=== PATIENT | female | born 1940 | race Caucasian/White ===

== ENCOUNTER 2016-12-28 15:06 | Emergency (ER) | payer MEDICARE ==
--- NOTE | ~2016-12-28 | ER ---
PATIENT'S NAME: [facility] AGE: 76 Y [address] ROOM: [place] [address] LOCATION: [facility] ADMIT DATE: 12/28/2016 ER/Outpatient Report DISCHARGE DATE: 12/28/2016 FAMILY PHYSICIAN: PHYSICIAN, NO ATTENDING PHYSICIAN: Jose Simms Time of Arrival: 1506 hours. Time of Evaluation: 1513 hours. CHIEF COMPLAINT: Weakness. HISTORY OF PRESENT ILLNESS: The patient is a 76-year-old female, who presents to the emergency department today with a chief complaint of weakness. She reports she has just been sleeping more than normal. She reports that she does have a history of a urinary tract infection. She had one a couple of months ago. She does have some shortness of breath with walking as well. She does report a fever of 99.2, and some chills. No nausea or vomiting. No diarrhea or constipation. No chest pain. Mild cough. Pain is currently mild in severity in her joints. PAST MEDICAL HISTORY: Hypertension, dyslipidemia. PAST SURGICAL HISTORY: Cholecystectomy. SOCIAL HISTORY: The patient denies any tobacco, alcohol, or illicit drug use. ALLERGIES: TO NIACIN. FAMILY HISTORY: Heart disease and diabetes in sister. PRIMARY CARE DOCTOR: None. REVIEW OF SYSTEMS: All systems are reviewed by myself and are negative with the exception of those discussed in the HPI and past medical history. PHYSICAL EXAMINATION: VITAL SIGNS: Weight 79.5 kg, blood pressure 155/82, pulse 101, respiratory PATIENT'S NAME: [facility] AGE: 76 Y [address] ROOM: [place] [address] LOCATION: [facility] ADMIT DATE: 12/28/2016 ER/Outpatient Report DISCHARGE DATE: 12/28/2016 FAMILY PHYSICIAN: PHYSICIAN, NO ATTENDING PHYSICIAN: Jose Simms rate 22, temperature 98.3, oxygen saturation 93% on room air. GENERAL: The patient is a 76-year-old female, who appears stated age, in no acute distress at this time. HEENT: Normocephalic, atraumatic. Pupils are equal, round, and reactive to light. Mucous membranes are moist. NECK: Supple. There is no nuchal rigidity. CARDIOVASCULAR: Tachycardic. No murmurs, rubs, or gallops. LUNGS: Clear to auscultation bilaterally. No wheezes, rales, or rhonchi. ABDOMEN: Soft, nontender, and nondistended. No rebound, rigidity, or guarding. MUSCULOSKELETAL: The patient moves all 4 extremities. Ambulates in the room. SKIN: Warm and dry. LABORATORY DATA AND X-RAYS: Labs and x-rays are obtained. Urinalysis shows 500 leukocyte esterase, positive nitrites, 100 protein, many bacteria, 20-50 wbc's, 50 ketones, 250 blood. TSH is normal. Free T4 is 2.1. Two-view chest x-ray is obtained, does show a small right pleural effusion. EKG is obtained, is interpreted by myself, shows sinus rhythm with a rate of 90, left axis deviation, normal interval. No ST elevation, ST depression, T-wave inversions. CBC: White blood cell count 14.5, platelets 610. Lactate is normal. Coags are normal. Troponin is normal. CK-MB, troponin, CK are normal. Total bilirubin is normal. CMP is unremarkable except for CO2 of 21, alkaline phosphatase 120, AST is 94, ALT is 85. Procalcitonin is 0.36. IMPRESSION: 1. Acute urinary tract infection, suspect bladder. 2. Elevated liver enzymes. 3. Small right pleural effusion. 4. Initial visit. EMERGENCY DEPARTMENT COURSE: The patient was brought back to the examination room. Seen and evaluated by myself. IV is established. Laboratory analysis and imaging are obtained as described above. The patient was given a liter of normal saline as well as 1 g of Rocephin IV. The patient does have an excellent overall clinical appearance at this time. Her vital signs are stable. I have discussed that I would like her to follow up with her primary care doctor in 2 or 3 days for re- evaluation. I have discussed return to care instructions including worsening symptoms or any other concerns to return to the emergency department as soon as possible. The patient is agreeable without further questions. DISPOSITION: The patient is discharged home in good condition. PATIENT'S NAME: LEX IZAGUIRRE [facility] AGE: 76 Y [address] ROOM: [place] [address] LOCATION: [facility] ADMIT DATE: 12/28/2016 ER/Outpatient Report DISCHARGE DATE: 12/28/2016 FAMILY PHYSICIAN: PHYSICIAN, NO ATTENDING PHYSICIAN: Jose Simms DO GAIL [employer]ODALL/modl /[id number] d: 12/28/162054 t: 12/30/1608, OUTPATIENT REPORT
[2016-12-28 15:42] LABS: BASOPHIL % 0.1 %; EOSINOPHIL % 0.2 %; HEMATOCRIT 33.9 % (33.0-46.0); HEMOGLOBIN 11.3 g/dL (10.0-15.0); IMMATURE GRANULOCYTE # 0.1 K/uL (0.0-0.3); IMMATURE GRANULOCYTE % 0.4 %; LYMPHOCYTE # 1.3 K/uL (0.8-4.0); LYMPHOCYTE % 9.1 %; MCH 29.4 pg (27.0-34.0); MCHC 33.3 gm/dL (32.0-36.5); MCV 88.1 fl (83.0-98.0); MONOCYTE # 1.3 K/uL (0.0-1.0); MONOCYTE % 8.9 %; MPV 9.3 fl (9.4-12.4); NEUTROPHIL # (ANC) 11.8 K/uL (1.8-7.8); NEUTROPHIL % 81.3 %; NRBC % 0 /100WBC (0-0.00); PLATELET COUNT 610 K/uL (150-450); RBC 3.85 M/uL (3.50-5.50); RDW-CV 14.9 % (11.9-14.6); WBC 14.5 K/uL (4.0-11.0)
[2016-12-28 15:51] LABS: INR - (THERAPEUTIC) 0.99 (0.92-1.07); PROTIME 10.4 SECONDS (9.8-11.4); PTT 31 SECONDS (25-32)
[2016-12-28 16:06] LABS: ALBUMIN 2.3 gm/dL (3.5-5.0); ALK PHOS 170 IU/L (33-138); ALT 85 IU/L (12-78); ANION GAP 15.8 (10.0-19.0); AST 94 IU/L (10-40); BLOOD UREA NITROGEN 16 mg/dL (6-24); CALCIUM 8.6 mg/dL (8.5-10.5); CHLORIDE 104 mMol/L (96-110); CO2 21 mMol/L (22-32); CPK 20 IU/L (21-215); CREATININE 1.1 mg/dL (0.5-1.1); ESTIMATED GFR (MDRD EQUATION) 48; POTASSIUM 3.8 mMol/L (3.7-5.1); SODIUM 137 mMol/L (135-145); TOTAL PROTEIN 7.6 g/dL (6.0-8.4)
[2016-12-28 16:25] LABS: BILIRUBIN URINE NEGATIVE (NEGATIVE); BLOOD URINE 250 /UL (NEGATIVE); COLOR URINE YELLOW (YELLOW); GLUCOSE URINE NEGATIVE (NEGATIVE); KETONE URINE 50 mg/dL (NEGATIVE); LEUKOCYTES URINE 500 /UL (NEGATIVE); NITRITE URINE POSITIVE (NEGATIVE); PROTEIN URINE 100 mg/dL (NEGATIVE); TURBIDITY URINE CLEAR (CLEAR); UROBILINOGEN URINE 8 mg/dL (NORMAL)
[2016-12-28 16:38] LABS: BACTERIA URINE MANY (NEGATIVE); MUCUS URINE 2+ (NEGATIVE); WBC URINE 20-50 #/HPF (NEGATIVE)
== END 2016-12-28 17:30 | disposition disaster alternative care site (69) ==
LOC: GMED 15:06
PROVIDERS: Emergency Medicine
DX: N39.0 Urinary tract infection, site not specified (principal); J90 Pleural effusion, not elsewhere classified; R74.8 Abnormal levels of other serum enzymes; I10 Essential (primary) hypertension; E78.5 Hyperlipidemia, unspecified; Z88.8 Allergy status to other drugs, medicaments and biological substances; Z90.49 Acquired absence of other specified parts of digestive tract; Z79.82 Long term (current) use of aspirin; Z79.899 Other long term (current) drug therapy
CPT/HCPCS: J0696; J7030